=== PATIENT | male | born 1955 | race Two or more races ===

== ENCOUNTER 2016-05-08 14:13 | Observation (INO) | payer MEDICARE, MEDICAID ==
[~2016-05-08] VITALS: Ht 175.3 cm; Wt 70.6 kg
[2016-05-08] VITALS (7 sets, daily range): BP systolic 109–131; BP diastolic 58–83; PULSE 48–56; RESP 14–18; TEMP 96.8–98.2; O2SAT 96–100
--- NOTE | 2016-05-08 14:36 | PD ---
HPI Chief Complaint: Chest Pain Time Seen by Provider: 14:21 Travel History International Travel<30 days: No Contact w/Intl Traveler<30days: No Traveled to known affect area: No History of Present Illness HPI This patient complains of chest tightness and heaviness. Duration one week. Symptoms are intermittent. They're not exertional. Location is essentially the entire sternum. No cough or injury or fever. He has history of coronary artery disease. He has a stent placed some years back. He is here vacationing from [place]. No alleviating factors. He is currently chest pain-free. Symptoms are moderate in severity when occurring. PFSH Past Medical History Hx Anticoagulant Therapy: Yes Cardiac Catheterization: Yes Cardiovascular Problems: Yes Chest Pain: Yes Coronary Artery Disease: Yes Diminished Hearing: No Immunizations Current: Yes Myocardial Infarction: Yes Tetanus Vaccination: < 5 Years Influenza Vaccination: No Past Surgical History Cholecystectomy: Yes Coronary Stent: Yes Social History Alcohol Use: No Tobacco Use: Yes (1 pk) Substance Use: No Allergies-Medications (Allergen,Severity, Reaction): Coded Allergies: No Known Allergies (Unverified , 05/08/16) Reported Meds & Prescriptions Reported Meds & Active Scripts Active Reported Nitroglycerin SL (Nitroglycerin) 0.4 Mg Subl 0.4 Mg SL DIRECTED PRN ONE TABLET UNDER THE TONGUE NEEDED FOR CHEST PAIN, MAY REPEAT EVERY FIVE MINUTES FOR A TOTAL OF 3 DOSES OR CALL 911 IF NO RELIEF Methadone (Methadone HCl) 10 Mg Tab 10 Mg PO BID Percocet (Oxycodone-Acetaminophen) 10-325 mg Tab 1 Tab PO Q4H PRN Aspirin Low Dose (Aspirin) 81 Mg Chew 81 Mg CHEW DAILY Lipitor (Atorvastatin Calcium) 80 Mg Tab 80 Mg PO HS Plavix (Clopidogrel Bisulfate) 75 Mg Tab 75 Mg PO DAILY Atenolol 25 Mg Tab 25 Mg PO DAILY Xanax (Alprazolam) 0.25 Mg Tab 0.25 Mg PO Q6H PRN Review of Systems General / Constitutional: No: Fever Eyes: No: Visual changes HENT: No: Headaches Cardiovascular: Positive: Chest Pain or Discomfort Respiratory: No: Shortness of Breath Gastrointestinal: No: Abdominal Pain Genitourinary: No: Dysuria Musculoskeletal: No: Pain Skin: No Rash Neurologic: No: Weakness Psychiatric: No: Depression Endocrine: No: Polydipsia Hematologic/Lymphatic: No: Easy Bruising Physical Exam Narrative GENERAL: Well-nourished, well-developed patient in no apparent distress. SKIN: Warm and dry. HEAD: Atraumatic. Normocephalic. EYES: Pupils equal and round. No scleral icterus. No injection or drainage. ENT: No nasal bleeding or discharge. Mucous membranes pink and moist. NECK: Trachea midline. No JVD. CARDIOVASCULAR: Regular rate and rhythm. No murmur appreciated. RESPIRATORY: No accessory muscle use. Clear to auscultation. Breath sounds equal bilaterally. GASTROINTESTINAL: Abdomen soft, non-tender, nondistended. Hepatic and splenic margins not palpable. MUSCULOSKELETAL: No obvious deformities. No clubbing. No cyanosis. No edema. NEUROLOGICAL: Awake and alert. No obvious cranial nerve deficits. Motor grossly within normal limits. Normal speech. PSYCHIATRIC: Appropriate mood and affect; insight and judgment normal. Data Data Last Documented VS Vital Signs Date Time Temp Pulse Resp B/P Pulse Ox O2 Delivery O2 Flow Rate FiO2 05/08/16 15:36 49 18 109/58 97 Room Air 05/08/16 14:27 98.2 Orders Electrocardiogram (05/08/16 14:31) Basic Metabolic Panel (Bmp) (05/08/16 14:31) Ckmb (Isoenzyme) Profile (05/08/16 14:31) Complete Blood Count With Diff (05/08/16 14:31) Prothrombin Time / Inr (Pt) (05/08/16 14:31) Act Partial Throm Time (Ptt) (05/08/16 14:31) Troponin I (05/08/16 14:31) Chest, Single Ap (05/08/16 14:31) Ecg Monitoring (05/08/16 14:31) Iv Access Insert/Monitor (05/08/16 14:31) Oximetry (05/08/16 14:31) Sodium Chloride 0.9% Flush (Ns Flush) (05/08/16 14:45) Labs Laboratory Tests Test 05/08/16 14:40 White Blood Count 6.0 TH/MM3 Red Blood Count 4.30 MIL/MM3 Hemoglobin 12.9 GM/DL Hematocrit 37.8 % Mean Corpuscular Volume 87.8 FL Mean Corpuscular Hemoglobin 30.1 PG Mean Corpuscular Hemoglobin 34.2 % Concent Red Cell Distribution Width 13.0 % Platelet Count 122 TH/MM3 Mean Platelet Volume 9.8 FL Neutrophils (%) (Auto) 65.6 % Lymphocytes (%) (Auto) 23.2 % Monocytes (%) (Auto) 9.3 % Eosinophils (%) (Auto) 1.0 % Basophils (%) (Auto) 0.9 % Neutrophils # (Auto) 3.8 TH/MM3 Lymphocytes # (Auto) 1.4 TH/MM3 Monocytes # (Auto) 0.6 TH/MM3 Eosinophils # (Auto) 0.1 TH/MM3 Basophils # (Auto) 0.1 TH/MM3 CBC Comment DIFF FINAL Differential Comment Prothrombin Time 11.8 SEC Prothromb Time International 1.1 RATIO Ratio Activated Partial 27.0 SEC Thromboplast Time Sodium Level 144 MEQ/L Potassium Level 4.7 MEQ/L Chloride Level 109 MEQ/L Carbon Dioxide Level 28.4 MEQ/L Anion Gap 7 MEQ/L Blood Urea Nitrogen 19 MG/DL Creatinine 0.91 MG/DL Estimat Glomerular Filtration 85 ML/MIN Rate Random Glucose 116 MG/DL Calcium Level 8.2 MG/DL Total Creatine Kinase 86 U/L Troponin I LESS THAN 0.02 NG/ML [facility] Medical Decision Making Medical Screen Exam Complete: Yes Emergency Medical Condition: Yes Medical Record Reviewed: Yes Differential Diagnosis Differential diagnosis includes NV, angina, pericarditis, pleurisy, GERD, anxiety. Narrative Course I have reviewed the patient's electronic medical record. Nothing on file, is vacationing from [place] IV placed I reviewed the EKG which shows sinus rhythm but no ST elevation I reviewed the chest x-ray is normal Extended cardiac monitoring shows sinus rhythm without ectopy CBC is normal Metabolic profile is normal CK is normal Troponin is normal Coagulation studies are normal He took an aspirin earlier today Patient is here vacationing from [place] having some chest symptoms. He is known CAD and I'm recommending 23 hour observation on telemetry in the chest pain center to rule out cardiac cause of his symptoms. His workup here is negative. I placed a call to the hospitalist to discuss Diagnosis Primary Impression: Chest pain in adult Admitting Information Admitting Physician Requests: Observation Deandre Aquino MD May 08, 2016 14:36
--- NOTE | 2016-05-08 14:44 | RADHPO ---
EXAM DATE/TIME: 05/08/2016 14:36 [facility] COMPARISON: No previous studies available for comparison. INDICATIONS : Shortness of breath and chest pressure for three days. MEDICAL HISTORY : None. SURGICAL HISTORY : Cardiac stent. ENCOUNTER: Initial ACUITY: 3 days PAIN SCORE: 2/10 LOCATION: Bilateral chest FINDINGS: Portable AP view of the chest demonstrates a normal-sized cardiac silhouette. No effusion, consolidat ion, or pneumothorax is visualized. The bones and soft tissues demonstrate no acute abnormality. CONCLUSION: No acute cardiopulmonary abnormality is identified. Forrest Dumont MD on May 08, 2016 at 14:42 Board Certified Radiologist. This report was verified electronically.
[2016-05-08] MEDS ORDERED: SODIUM CHLORIDE 0.9% FLUSH 5 ML FLUSH IVF PRN ×2 (14:45→16:15)
[2016-05-08] MEDS ORDERED: ATEN25TA PO (14:47)
[2016-05-08] MEDS ORDERED: ALPR.25 PO (14:47)
[2016-05-08] MEDS ORDERED: NITR1SUB3 SL (14:47)
[2016-05-08] MEDS ORDERED: ASPI81CH37 CHEW (14:47)
[2016-05-08] MEDS ORDERED: LIPI80TA PO (14:47)
[2016-05-08] MEDS ORDERED: PERC10TA27 PO (14:47)
[2016-05-08] MEDS ORDERED: METH10TA PO (14:47)
[2016-05-08] MEDS ORDERED: PLAV75TA29 PO (14:47)
[2016-05-08 14:49] LABS: AUTOMATED NEUTROPHIL # 3.8 TH/MM3 (1.8-7.7); BASOPHIL # 0.1 TH/MM3 (0-0.2); BASOPHIL % 0.9 % (0.0-2.0); EOSINOPHIL # 0.1 TH/MM3 (0-0.4); HEMATOCRIT 37.8 % (39.0-51.0); HEMO FLAGS DIFF FINAL; LYMPH % 23.2 % (9.0-44.0); LYMPHOCYTE # 1.4 TH/MM3 (1.0-4.8); MEAN CELL VOLUME 87.8 FL (80.0-100.0); MEAN CORPUSCULAR HEMOGLOBIN 30.1 PG (27.0-34.0); MEAN CORPUSCULAR HGB CONC 34.2 % (32.0-36.0); MONO % 9.3 % (0.0-8.0); NEUT % 65.6 % (16.0-70.0); PLATELET COUNT 122 TH/MM3 (150-450)
[2016-05-08 14:56] LABS: CHLORIDE 109 MEQ/L (98-107); POTASSIUM 4.7 MEQ/L (3.5-5.1); SODIUM (NA) 144 MEQ/L (136-145)
[2016-05-08 14:59] LABS: ANION GAP 7 MEQ/L (5-15); BICARBONATE 28.4 MEQ/L (21.0-32.0); BLOOD UREA NITROGEN 19 MG/DL (7-18); INTERNATIONAL NORMALIZED RATIO 1.1 RATIO; PROTHROMBIN TIME - PATIENT 11.8 SEC (9.8-11.6)
[2016-05-08 15:02] LABS: GLOMERULAR FILTRATION RATE 85 ML/MIN (>89)
[2016-05-08 15:23] LABS: CREATINE KINASE 86 U/L (39-308)
[2016-05-08] MEDS ORDERED: NITROGLYCERIN 0.4 MG SL 25 TABS/BTL SL PRN (16:15)
[2016-05-08] MEDS ORDERED: ACETAMINOPHEN 500 MG CPLT PO PRN (16:15)
--- NOTE | 2016-05-08 16:28 | HHI.HP ---
[facility] Primary Care Physician Non-Staff Admission Diagnosis chest pain Diagnoses: Travel History International Travel<30 Days: No Contact w/Intl Traveler <30 Da: No Traveled to Known Affected Are: No History of Present Illness This is a very pleasant 60 year-old female with past medical history of coronary artery disease status post 1 stent, tobacco use and anxiety who is here visiting from [place]. Over the past few days he's had shortness of breath. He denies any cough or wheeze. Then today he started to get what he described as "twinges" in his left chest. It felt similar as to when he had his stent. Symptoms moderate, no alleviating or provoking factors. He does admit to some diaphoresis. No nausea. No radiation. He states that he did have a catheterization in 2014 at [facility] in [facility] by a head bander and liner operator Dr. Howard and did not need to stent, however his tells me that he did have a 70% blockage that they decided to medically manage at that time. The patient also states that he has severe anxiety and takes Xanax as needed for this. The patient denies any leg swelling. Denies any heart palpitations. Denies any hemoptysis. He did fly here from [place]. Denies any recent long car rides. In the emergency department EKG shows normal sinus rhythm without ST or T-wave changes. Initial troponin was negative. He is sinus bradycardic in the 40s. ED physician requested him to be placed in the chest pain center for observation. Review of Systems Constitutional: DENIES: Fever, Chills Ears, nose, mouth, throat: DENIES: Throat pain, Hoarseness Respiratory: COMPLAINS OF: Shortness of breath, DENIES: Cough, Wheezing Cardiovascular: COMPLAINS OF: Chest pain, DENIES: Palpitations, Dyspnea on Exertion, Lower Extremity Edema Gastrointestinal: DENIES: Abdominal pain, Vomiting Genitourinary: DENIES: Hematuria, Dysuria Musculoskeletal: COMPLAINS OF: Back pain, DENIES: Neck pain Integumentary: DENIES: Rash Neurologic: DENIES: Abnormal gait, Localized weakness Psychiatric: COMPLAINS OF: Anxiety, DENIES: Confusion Past Family Social History Past Medical History Chronic back pain Coronary artery disease status post stent in the past, status post left heart catheterization 1 year ago showing a 70% stenosis as per his Anxiety Past Surgical History Multiple back surgeries Reported Medications Allergies Coded Allergies Type Severity Reaction Last Updated Verified No Known Allergies 05/08/16 No Active Scripts Medications Dose Route/Sig Days Date Category Dose Instructions Nitroglycerin SL (Nitroglycerin) 0.4 Mg Subl 0.4 Mg SL DIRECTED PRN 05/08/16 Reported ONE TABLET UNDER THE TONGUE NEEDED FOR CHEST PAIN, MAY REPEAT EVERY FIVE MINUTES FOR A TOTAL OF 3 DOSES OR CALL 911 IF NO RELIEF Methadone (Methadone HCl) 10 Mg Tab 10 Mg PO BID 05/08/16 Reported Percocet (Oxycodone-Acetaminophen) 10-325 mg Tab 1 Tab PO Q4H PRN 05/08/16 Reported Aspirin Low Dose (Aspirin) 81 Mg Chew 81 Mg CHEW DAILY 05/08/16 Reported Lipitor (Atorvastatin Calcium) 80 Mg Tab 80 Mg PO HS 05/08/16 Reported Plavix (Clopidogrel Bisulfate) 75 Mg Tab 75 Mg PO DAILY 05/08/16 Reported Atenolol 25 Mg Tab 25 Mg PO DAILY 05/08/16 Reported Xanax (Alprazolam) 0.25 Mg Tab 0.25 Mg PO Q6H PRN 05/08/16 Reported Allergies: Coded Allergies: No Known Allergies (Unverified , 05/08/16) Family History Negative for coronary artery disease. Social History He works during [employer] Smokes close to one pack every 2 days. No alcohol or drug use. He is . Physical Exam Vital Signs Vital Signs Date Time Temp Pulse Resp B/P Pulse Ox O2 Delivery O2 Flow Rate FiO2 05/08/16 15:36 49 18 109/58 97 Room Air 05/08/16 14:43 100 Room Air 05/08/16 14:29 56 20 100 Room Air 05/08/16 14:27 98.2 56 18 131/64 100 Physical Exam GENERAL: Well-nourished, well-developed anxious lean male patient. SKIN: Warm and dry. HEAD: Normocephalic. EYES: No scleral icterus. No injection or drainage. NECK: Supple, trachea midline. No JVD or lymphadenopathy. CARDIOVASCULAR: Regular rate and rhythm without murmurs, gallops, or rubs. Good distal pulses. RESPIRATORY: Breath sounds equal and clear to auscultation bilaterally. No accessory muscle use. Sats 94% on room air. GASTROINTESTINAL: Abdomen soft, non-tender, nondistended. EXTREMITIES: No pedal edema. NEUROLOGICAL: Awake, alert, and oriented x 3. Non-focal. Laboratory Laboratory Tests Test 05/08/16 14:40 White Blood Count 6.0 Red Blood Count 4.30 Hemoglobin 12.9 Hematocrit 37.8 Mean Corpuscular Volume 87.8 Mean Corpuscular Hemoglobin 30.1 Mean Corpuscular Hemoglobin 34.2 Concent Red Cell Distribution Width 13.0 Platelet Count 122 Mean Platelet Volume 9.8 Neutrophils (%) (Auto) 65.6 Lymphocytes (%) (Auto) 23.2 Monocytes (%) (Auto) 9.3 Eosinophils (%) (Auto) 1.0 Basophils (%) (Auto) 0.9 Neutrophils # (Auto) 3.8 Lymphocytes # (Auto) 1.4 Monocytes # (Auto) 0.6 Eosinophils # (Auto) 0.1 Basophils # (Auto) 0.1 CBC Comment DIFF FINAL Differential Comment Prothrombin Time 11.8 Prothromb Time International 1.1 Ratio Activated Partial 27.0 Thromboplast Time Sodium Level 144 Potassium Level 4.7 Chloride Level 109 Carbon Dioxide Level 28.4 Anion Gap 7 Blood Urea Nitrogen 19 Creatinine 0.91 Estimat Glomerular Filtration 85 Rate Random Glucose 116 Calcium Level 8.2 Total Creatine Kinase 86 Troponin I LESS THAN 0.02 Result Diagram: 05/08/16 1440 05/08/16 1440 Imaging Last Impressions Chest X-Ray 05/08/16 1431 Signed Impressions: Service Date/Time: Sunday, May 08, 2016 14:36 - CONCLUSION: No acute cardiopulmonary abnormality is identified. Forrest Dumont MD Assessment and Plan Problem List: (1) Chest pain in adult ICD Code: R07.9 Status: Acute Assessment and Plan -Left sided chest pain in a patient with coronary artery disease status post stent in the past, status post left heart catheterization 1 year ago showing a 70% stenosis as per his , the patient does continue to smoke tobacco. He is compliant with aspirin and Plavix. Initial troponin and EKG are negative. Chest x-rays negative. We will place him in the chest pain center. Continue aspirin and Plavix. Hold atenolol due to sinus bradycardia. If negative workup for plan for nuclear stress test in the morning. He does appear to be quite anxious and I encouraged him to use his Xanax as needed. -Dyspnea. Due to his recent travel over check a d-dimer and if elevated will proceed with CTA. Lungs are clear to auscultation and chest x-rays negative. He does smoke and has been told that he has the early stages of COPD. Smoking cessation was encouraged. -Sinus bradycardia. We'll hold atenolol. -Chronic back pain with history of multiple back surgeries - continue his home methadone and Percocet for breakthrough pain. -Anxiety - continue Xanax as needed. -DVT prophylaxis with Lovenox. Aviva Hardy MD May 08, 2016 16:28
[2016-05-08] MEDS ORDERED: ALPRAZolam 0.25 MG TAB PO PRN (16:30)
[2016-05-08] MEDS ORDERED: oxyCODONE/ACETAMINOPHEN 10 MG/325 MG TAB PO PRN (16:30)
[2016-05-08] MEDS ORDERED: ENOXAPARIN SODIUM 40 MG/0.4 ML SYRINGE SQ SCH (17:00)
[2016-05-08 17:18] LABS: CREATINE KINASE 81 U/L (39-308)
[2016-05-08] MEDS ORDERED: METHADONE HCL 10 MG TAB PO SCH (21:00)
[2016-05-08] MEDS ORDERED: ATORVASTATIN 40 MG TAB PO SCH (21:00)
[2016-05-08 21:09] LABS: CREATINE KINASE 82 U/L (39-308)
[2016-05-08] MEDS: SODIUM CHLORIDE 0.9% FLUSH 5 ML FLUSH IVF SCH (21:18)
[2016-05-09 00:29] VITALS: BP 117/76; PULSE 49; RESP 12; TEMP 98; O2SAT 94
[2016-05-09 04:05] VITALS: BP 125/76; PULSE 50; RESP 16; TEMP 97.9; O2SAT 97
--- NOTE | 2016-05-09 08:46 | HHI.PR ---
Subjective Remarks Patient examined today with Dr. Hardy. Patient denies any recurrent chest discomfort or shortness of breath. Discussed patient's heart rate and stress testing with patient. Patient concerned about stress test. These had previous nuclear stress test in the past and they have use reversal for completion of testing. Objective Vitals Vital Signs Date Time Temp Pulse Resp B/P Pulse Ox O2 Delivery O2 Flow Rate FiO2 05/09/16 04:05 97.9 50 16 125/76 97 05/09/16 00:29 98.0 49 12 117/76 94 05/08/16 20:17 97.3 50 14 122/76 96 05/08/16 20:00 49 05/08/16 17:03 60 18 116/77 97 05/08/16 17:00 96.8 48 16 129/83 98 05/08/16 15:36 49 18 109/58 97 Room Air 05/08/16 14:43 100 Room Air 05/08/16 14:29 56 20 100 Room Air 05/08/16 14:27 98.2 56 18 131/64 100 Result Diagram: 05/08/16 1440 05/08/16 1440 Objective Remarks GENERAL: Well-developed, well-nourished, in no acute distress. alert and orientated HEENT: Head is normocephalic without any lesions or masses noted. Facial features are symmetric. Eyes: Extraocular muscles are intact. Conjunctivae were clear. NECK: Supple without any masses. Trachea midline no deviation. No JVD, CARDIAC: Regular rhythm, bradycardic. S1/S2 are heard. No murmurs gallops or rubs. LUNGS: Clear to auscultation bilaterally. No wheeze, rhonchi or rales. No use of accessory muscles on inspiration or expiration. ABDOMEN: Soft, nontender. Nondistended. Bowel sounds heard in all 4 quadrants. No organomegaly or masses. Negative rebound, negative guarding EXTREMITIES: No edema, pulses are equal bilaterally. No cyanosis or clubbing NEUROLOGY: Mood and affect appear appropriate. Cranial nerves II through XII grossly intact. Moving all extremities, speech is clear Urinary Catheter: No Vascular Central Line Catheter: No A/P Assessment and Plan -Left sided chest pain in a patient with coronary artery disease status post stent in the past, status post left heart catheterization 1 year ago showing a 70% stenosis as per his , the patient does continue to smoke tobacco. He is compliant with aspirin and Plavix. Patient ruled out for any acute coronary event with serial cardiac enzymes which are negative. Serial EKGs shows sinus bradycardia without any changes. Chest x-rays negative. Continue aspirin and Plavix. Hold atenolol due to sinus bradycardia. nuclear stress test was negative underlying ischemia -Dyspnea. Due to his recent airline travel and prolonged car trips. D-dimer was checked and is negative, no indication for any PE at this time. He does smoke and has been told that he has the early stages of COPD. Smoking cessation was encouraged. -Sinus bradycardia. Continue to hold atenolol. -Chronic back pain with history of multiple back surgeries - continued his home methadone and Percocet for breakthrough pain. -Anxiety: He does appear to be quite anxious and Dr. Hardy encouraged him to use his Xanax as needed. -DVT prophylaxis with Lovenox. Written by Deandre Bell PA-C, acting as scribe for Dr. Hardy on 05/09/16 at 1210. The documentation accurately reflects the work and decisions performed face-to- face by Dr. Hardy on 05/09/16 at 1210. Discharge Planning Discharge home in stable condition Activity: Ad dagmar. Diet: Healthy heart diet Medications per medication reconciliation Follow-up primary medical doctor in one week Deandre Bell May 09, 2016 08:46 Aviva Hardy MD May 09, 2016 14:34
--- NOTE | 2016-05-09 08:47 | HHI.DCPOC ---
Discharge Care Plan Diagnosis: (1) Chest pain in adult Goals to Promote Your Health * To prevent worsening of your condition and complications * To maintain your health at the optimal level Directions to Meet Your Goals Take your medications as prescribed Follow your dietary instruction Follow activity as directed Keep your appointments as scheduled Take your immunizations and boosters as scheduled If your symptoms worsen call your PCP, if no PCP go to Urgent Care Center or Emergency Room Smoking is Dangerous to Your Health. Avoid second hand smoke Call the 24-hour hour crisis hotline for domestic abuse at Deandre Bell May 09, 2016 08:47
[2016-05-09] MEDS: SODIUM CHLORIDE 0.9% FLUSH 5 ML FLUSH IVF SCH (08:57)
[2016-05-09] MEDS ORDERED: ASPIRIN 81 MG CHEW TAB CHEW SCH (09:00)
[2016-05-09] MEDS ORDERED: CLOPIDOGREL 75 MG TAB PO SCH (09:00)
[2016-05-09] MEDS ORDERED: METHADONE HCL 10 MG TAB PO SCH (09:00)
[2016-05-09 09:14] VITALS: BP 104/63; PULSE 57; RESP 14; TEMP 97.5; O2SAT 95
[2016-05-09] MEDS ORDERED: REGADENOSON INJ 0.4 MG/5 ML SYR IV ONE (10:55)
--- NOTE | 2016-05-09 11:33 | RADHPO ---
EXAM DATE/TIME: 05/09/2016 10:38 [facility] COMPARISON: CHEST SINGLE AP, May 08, 2016, 14:36. INDICATIONS : Shortness of breath with left sided chest pain for two days. Coronary artery disease. DOSE: 25.8 mCi Tc99m Myoview at stress. 8.7 mCi Tc99m Myoview at rest. 0.4 mg Lexiscan STRESS SYMPTOMS: Shortness of breath. EJECTION FRACTION: 58% MEDICAL HISTORY : Cardiovascular disease. Smoker. SURGICAL HISTORY : Cholecystectomy. Coronary artery stent. ENCOUNTER: Initial ACUITY: 2 days PAIN SCALE: 6/10 LOCATION: Left chest TECHNIQUE: The patient underwent pharmacologic stress with infusion of prescribed dose. Continuous ECG tracing was monitored during stress. Gated SPECT imaging was performed after stress and conventional SPECT i maging was performed at rest. The examination was performed on a SPECT/CT scanner, both attenuation and non-corrected datasets were reviewed. FINDINGS: DISTRIBUTION: The maximum perfused segment at stress is in the anteroseptal wall. PERFUSION STUDY: The pattern of perfusion at stress is within normal limits. No significant fixed or reversible perfus ion defect is visualized. GATED STUDY: There is intact wall motion and thickening without hypokinetic or dyskinetic segments. CONCLUSION: 1. No perfusion abnormality is identified. No significant fixed or reversible perfusion defect is arya ntified. 2. Normal left ventricle wall motion and ejection fraction. RISK CATEGORY: Low (<1% Annual Mortality Rate) Forrest Dumont MD on May 09, 2016 at 11:30 Board Certified Radiologist. This report was verified electronically.
--- NOTE | 2016-05-09 13:18 | TR ---
Date Performed: 05/09/2016 Time Performed: 10:42:11 DOCTOR: Mitul Horvath DRUG LIST: CLINICAL HISTORY: CAD REASON FOR TEST: CORONARY ARTERY DISEASE REASON FOR ENDING: OBSERVATION: CONCLUSION: Lexiscan stress test was performed under standard four minute protocol. Radionuclide was injected one minute prior to ending the test. Developed shortness of breath. No electrocardiogra phic abnormalities were present to suggest ischemia. Recovery was quick and uneventful with resolutio n of shortness of breath. Nuclear imaging and interpretation are pending. COMMENTS:
--- NOTE | 2016-05-09 14:38 | EKG ---
Date Performed: 05/08/2016 Time Performed: 16:47:58 PTAGE: 60 years EKG: Sinus bradycardia Normal ECG except for rate Compared to prior tracing no significant sena stacy PREVIOUS TRACING : 05/08/2016 14.37 DOCTOR: Bang Castro Interpretating Date/Time 05/09/2016 14:36:58
--- NOTE | 2016-05-09 14:38 | EKG ---
Date Performed: 05/08/2016 Time Performed: 14:37:36 PTAGE: 60 years EKG: Sinus bradycardia Normal ECG except for rate NO PREVIOUS TRACING DOCTOR: Bang Castro Interpretating Date/Time 05/09/2016 14:36:22
--- NOTE | 2016-05-09 14:38 | EKG ---
Date Performed: 05/08/2016 Time Performed: 20:01:48 PTAGE: 60 years EKG: Sinus bradycardia. Normal ECG except for rate PREVIOUS TRACING : 05/08/2016 17.25 DOCTOR: Bang Castro Interpretating Date/Time 05/09/2016 14:37:09
== END 2016-05-09 12:42 | disposition home or self-care (01) ==
LOC: PHED 14:13 → PHEDA 16:03 → PH3B 16:57
PROVIDERS: ADMIT Family Medicine; ATTEND Family Medicine
DX: R07.9 Chest pain, unspecified (principal); I25.10 Atherosclerotic heart disease of native coronary artery without angina pectoris; F17.200 Nicotine dependence, unspecified, uncomplicated; Z95.5 Presence of coronary angioplasty implant and graft; Z79.01 Long term (current) use of anticoagulants
CPT/HCPCS: 71010; 78452; 80048; 82550; 84484; 85025; 85379; 85610; 85730; 93005; 93017; 99285; A9502; G0378; J1650; J2785